=== PATIENT | female | born 1990 | race Caucasian/White ===

== ENCOUNTER 2025-04-04 09:08 | Emergency (ER) | payer OTHER, SELFPAY ==
--- NOTE | ~2025-04-04 | CT_ITS ---
CLINICAL HISTORY: dizziness, right sided headed, sudden onset CT head without contrast Comparison: None available Findings: No acute hemorrhage. No extra-axial fluid collection. No hydrocephalus, mass-effect or herniation. Lechuga-white differentiation is maintained. White matter is within normal limits for age. No acute orbital pathology. No acute soft tissue abnormality. No fracture. The visualized paranasal sinuses are predominantly clear. The mastoid air cells are clear. Impression: No acute findings. CTA of the head and neck with 3-D postprocessing Comparison: None available Findings: No significant carotid artery stenosis. Intact vertebral arteries. The vertebral basilar system is patent. The cerebellar and posterior cerebral arteries are intact. The intracranial internal carotid arteries are patent. The middle/anterior cerebral arteries are intact. No aneurysm, abrupt cutoffs or significant stenosis. No mass, midline shift, hydrocephalus, acute hemorrhage or abnormal contrast enhancement. The lung apices are clear. The soft tissues of the head and neck are unremarkable. Impression: No aneurysm, abrupt cutoffs or significant stenosis. This document has been electronically signed by: Geraldine Doherty MD on 04/04/2025 14:00:35
[2025-04-04 09:11] VITALS: BP 124/58; PULSE 73; RESP 18; TEMP 36.7; O2SAT 98; BMI 27.0
[2025-04-04 09:24] LABS: MANUAL DIFF FLAG NO
[2025-04-04 09:26] LABS: Hematocrit 40.5 % (37.0-47.0); Hemoglobin 13.9 g/dl (12.0-16.0); Imm Gran Abs Auto 0.02 X10*3/uL (0.00-0.03); Imm Gran Pct Auto 0.3 % (0.0-0.4); Lymphocytes Absolute Auto 2.3 X10*3/uL (1.2-4.9); Mean Corpuscular HGB Conc 34.3 g/dl (31.0-35.0); Mean Corpuscular Hemoglobin 30.6 pg (27.0-33.0); Mean Corpuscular Volume 89.2 fL (80.0-98.0); NRBC Abs Auto 0.000 X10*3/uL (0.0-0.012); NRBC Pct Auto 0.0 /100WBC (0.0-0.2); Platelet Count 326 X10*3/uL (160-400); Red Blood Count 4.54 X10*6/uL (4.20-5.50); White Blood Count 7.2 X10*3/uL (4.8-10.8)
--- NOTE | 2025-04-04 09:44 | PC.NURSE ---
Pt comes to ED today with c/o severe R head pain and dizziness x4 days. 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 States she feels like she is moving when sitting still. States she is breast feeding and attempting to eat and drink well. Denies known current . Denies n/v or changes to bowel/urine pattern. She reports using Tylenol and Motrin for pain management with no relief. A&Ox3 VSS No signs of congestion. Skin is warm and dry Breaths and speech are unlabored. Blood labs completed and waiting for results.
[2025-04-04 09:45] LABS: Anion Gap 13 (12-20); Blood Urea Nitrogen 15 mg/dL (9-16); Calcium 9.6 mg/dL (8.4-10.2); Carbon Dioxide 25 mmol/L (22-29); Chloride 110 mmol/L (96-108); Creatinine Clr Calc Pharmacy 108.7; Estimated Glomerular Filt Rate > 60; Potassium 4.4 mmol/L (3.3-5.1); Sodium 144 mmol/L (135-145)
--- OUTSIDE RECORDS SUMMARY | 2025-04-04 09:50 | XMS_ITS | Data Portability ---
Author Organization [facility], Main Office Address [address] [facility] [address] [place] [phone] Care Team Providers Care Security Door Installer Name Role Phone JAMAR GAN Law Office Assistant AYE COY Primary Care Provider Unavailabl e Assessment Encounter Date Assessment Date Assessment LastModified by Organization Details LastModified Time 05/23/2023 05/23/2023 This service was provided using telemedicine. Patient consented to video & audio visit Patient was located in the [facility]. Provider was located in the office. No other persons participated in the telemedicine visit except for the patient unless otherwise indicated here. Total time of visit was 15 minutes. [email or web address] Not available 05/23/2023 15:49:05 11/26/2024 11/26/2024 Discussed with patient the signs/symptoms warranted for a return to office visit and/or an ER visit. Patient understood and agreed with the plan. [email or web address] Not available 11/26/2024 11:34:59 Plan of Treatment Reminders Order Date Submit Date Provider Last Modified By Organization Details Last Modified Time Details Appointments None record ed. Lab rapid flu (A+B) 2024 025 SUKI In-Office Order, Internal Use Only DO Not Attach Compendium DO Not Attach Compendium, Do Not Delete/merge, [id number] 11:55:57 lipid panel, serum 2024 025 [email or web address] [facility], [address], [address], 08:54:13 CMP, serum or plasma 2024 025 SUKI [facility], [address], [address], [place], [address], 5 12:05:42 TSH + free T4, serum 2024 025 SUKI [facility], [address], [address], [place], [address], 5 12:05:41 CBC w/ auto diff 2024 025 SUKI [facility], [address], [address], [place], [address], 5 12:05:41 CMP, serum or plasma 2023 024 SUKI [facility], [address], [address], [place], [address], 4 15:38:18 lipid panel, serum 2023 024 [email or web address] [facility], [address], [address], [place], [address], 4 08:03:51 TSH, serum or plasma 2023 024 [email or web address] [facility], [address], [address], [place], [address], 4 09:21:32 CBC w/ auto diff 2023 024 [email or web address] [facility], [address], [address], [place], [address], 4 09:21:31 iron + total iron-b inding capaci ty (TIBC) , serum 2023 024 SUKI [facility], [address], [address], [place], [address], 4 15:38:18 ferrit in, serum or plasma 2023 024 [email or web address] [facility], [address], [address], 09:21:32 Referral None record ed. Procedures None record ed. Surgeries None record ed. Imaging None record ed. Medication Orders amoxic illin 875 mg-pot assium clavul anate 125 mg tablet 2024 025 SUKI Not available 05:01:35 valacy clovir 1 gram tablet 2023 024 SUKI [id number], [phone] [place], [address], 15:37:06 dextro amphet amine- amphet amine 5 mg tablet 2023 024 [email or web address] [id number], [phone] [place], [address], 5 15:47:25 Patient TargetsNo targets recorded. Patient Instructions Encounter Date Encounter Id Patient Instructions Last Modified By Organization Details Last Modified Time 04/20/2023 [id number] To call or return for worsening or concerns [email or web address] Not available 04/20/2023 15:24:40 05/23/2023 [id number] To call or return for worsening or concerns [email or web address] Not available 05/23/2023 15:48:43 05/08/2024 [id number] To call or return for worsening or concerns [email or web address] Not available 05/08/2024 16:09:59 10/04/2024 [id number] upper respiratory infection (cold): care instructions [email or web address] Not available 10/04/2024 10:02:46 Reason for Referral None Reported. Results Created Date Observation Date Name Description Value Unit Range Abnormal Flag Note LastModifiedBy Organization Detail LastModifiedTime 06/22/19 25 06/22/2024 TSH+F REE T4 TSH 2.320 uIU/m L 0.450- 4.500 normal Not Available [facility] ([facility]) [address] [place], [address], 06/22/2024 12:05:41 06/22/1906/22/2024 TSH+F REE T4 T4,free(dire ct) 0.71 NG/dL 0.82-1 .77 below low normal Not Available [facility] ([facility]) [address] [place], [address], 06/22/2024 12:05:41 06/22/19 25 06/22/2024 CBC WITH DIFFE RENTI AL/PL ATELE T WBC 13.0 x10e3 /uL 3.4-10 .8 above high normal Not Available [facility] ([facility]) [address] [place], [address], 06/22/2024 12:05:41 06/22/19 25 06/22/2024 CBC WITH DIFFE RENTI AL/PL ATELE T RBC 3.31 x10e6 /uL 3.77-5 .28 below low normal Not Available [facility] ([facility]) [address] [place], [address], 06/22/2024 12:05:41 06/22/19 25 06/22/2024 CBC WITH DIFFE RENTI AL/PL ATELE T hemoglobin 9.4 g/dL 11.1-1 5.9 below low normal Not Available [facility] ([facility]) [address] [place], [address], 06/22/2024 12:05:41 06/22/19 25 06/22/2024 CBC WITH DIFFE RENTI AL/PL ATELE T hematocrit 30.0 % 34.0-4 6.6 below low normal Not Available [facility] ([facility]) [address] [place], [address], 06/22/2024 12:05:41 06/22/19 25 06/22/2024 CBC WITH DIFFE RENTI AL/PL ATELE T MCV 91 fL 79-97 normal Not Available [facility] ([facility]) [address] [place], [address], 06/22/2024 12:05:41 06/22/19 25 06/22/2024 CBC WITH DIFFE RENTI AL/PL ATELE T MCH 28.4 pg 26.6-3 3.0 normal Not Available [facility] ([facility]) [address] [place], [address], 06/22/2024 12:05:41 06/22/19 25 06/22/2024 CBC WITH DIFFE RENTI AL/PL ATELE T MCHC 31.3 g/dL 31.5-3 5.7 below low normal Not Available [facility] ([facility]) [address] [place], [address], 06/22/2024 12:05:41 06/22/19 25 06/22/2024 CBC WITH DIFFE RENTI AL/PL ATELE T RDW 13.3 % 11.7-1 5.4 Not Available [facility] ([facility]) [address] [place], [address], 06/22/2024 12:05:41 06/22/19 25 06/22/2024 CBC WITH DIFFE RENTI AL/PL ATELE T platelets 326 x10e3 /uL 150-45 0 normal Not Available [facility] ([facility]) [address] [place], [address], 06/22/2024 12:05:41 06/22/19 25 06/22/2024 CBC WITH DIFFE RENTI AL/PL ATELE T neutrophils 79 % not estab. normal Not Available [facility] ([facility]) [address] [place], [address], 06/22/2024 12:05:41 06/22/19 25 06/22/2024 CBC WITH DIFFE RENTI AL/PL ATELE T lymphs 13 % not estab. normal Not Available [facility] ([facility]) [address] [place], [address], 06/22/2024 12:05:41 06/22/19 25 06/22/2024 CBC WITH DIFFE RENTI AL/PL ATELE T monocytes 6 % not estab. normal Not Available [facility] ([facility]) [address] [facility], [place], [address], 06/22/2024 12:05:41 06/22/19 25 06/22/2024 CBC WITH DIFFE RENTI AL/PL ATELE T eos 1 % not estab. normal Not Available [facility] ([facility]) [address] [facility], [place], [address], 06/22/2024 12:05:41 06/22/19 25 06/22/2024 CBC WITH DIFFE RENTI AL/PL ATELE T basos 0 % not estab. normal Not Available [facility] ([facility]) [address] [facility], [place], [address], 06/22/2024 12:05:41 06/22/19 25 06/22/2024 CBC WITH DIFFE RENTI AL/PL ATELE T immature cells SOCIAL SERVICE AGENCY DIRECTOR Not Available [facility] ([facility]) [address] [place], [address], 06/22/2024 12:05:41 06/22/19 25 06/22/2024 CBC WITH DIFFE RENTI AL/PL ATELE T neutrophils (absolute) 10.3 x10e3 /uL 1.4-7. 0 above high normal Not Available [facility] ([facility]) [address] [place], [address], 06/22/2024 12:05:41 06/22/19 25 06/22/2024 CBC WITH DIFFE RENTI AL/PL ATELE T lymphs (absolute) 1.7 x10e3 /uL 0.7-3. 1 normal Not Available [facility] ([facility]) [address] [facility], [place], [address], 06/22/2024 12:05:41 06/22/19 25 06/22/2024 CBC WITH DIFFE RENTI AL/PL ATELE T monocytes(ab solute) 0.8 x10e3 /uL 0.1-0. 9 normal Not Available [facility] ([facility]) [address] [facility], [place], [address], 06/22/2024 12:05:41 06/22/19 25 06/22/2024 CBC WITH DIFFE RENTI AL/PL ATELE T eos (absolute) 0.1 x10e3 /uL 0.0-0. 4 normal Not Available [facility] ([facility]) [address] [facility], [place], [address], 06/22/2024 12:05:41 06/22/19 25 06/22/2024 CBC WITH DIFFE RENTI AL/PL ATELE T baso (absolute) 0.1 x10e3 /uL 0.0-0. 2 normal Not Available [facility] ([facility]) [address] [facility], [place], [address], 06/22/2024 12:05:41 06/22/19 25 06/22/2024 CBC WITH DIFFE RENTI AL/PL ATELE T immature granulocytes 1 % not estab. Not Available [facility] ([facility]) [address] [place], [address], 06/22/2024 12:05:41 06/22/19 25 06/22/2024 CBC WITH DIFFE RENTI AL/PL ATELE T immature grans (abs) 0.1 x10e3 /uL 0.0-0. 1 Not Available [facility] ([facility]) [address] [facility], [place], [address], 06/22/2024 12:05:41 06/22/19 25 06/22/2024 CBC WITH DIFFE RENTI AL/PL ATELE T NRBC SOCIAL SERVICE AGENCY DIRECTOR Not Available [facility] ([facility]) [address] [facility] [place], [address], 06/22/2024 12:05:41 06/22/19 25 06/22/2024 CBC WITH DIFFE RENTI AL/PL ATELE T hematology comments: SOCIAL SERVICE AGENCY DIRECTOR Not Available [facility] ([facility]) [address] [facility] [place], [address], 06/22/2024 12:05:41 06/22/19 25 06/22/2024 COMP. METAB OLIC PANEL (14) glucose 77 mg/dL 70-99 normal Not Available [facility] ([facility]) [address] [facility] [place], [address], 06/22/2024 12:05:42 06/22/19 25 06/22/2024 COMP. METAB OLIC PANEL (14) BUN 6 mg/dL 6-20 normal Not Available [facility] ([facility]) [address] [facility] [place], [address], 06/22/2024 12:05:42 06/22/19 25 06/22/2024 COMP. METAB OLIC PANEL (14) creatinine 0.51 mg/dL 0.57-1 .00 below low normal Not Available [facility] ([facility]) [address] [facility] [place], [address], 06/22/2024 12:05:42 06/22/19 25 06/22/2024 COMP. METAB OLIC PANEL (14) eGFR 126 mL/mi n/1.7 3 >59 normal Not Available [facility] ([facility]) [address] [facility] [place], [address], 06/22/2024 12:05:42 06/22/19 25 06/22/2024 COMP. METAB OLIC PANEL (14) BUN/creatini ne ratio 12 9-23 normal Not Available [facility] ([facility]) [address] [place], [address], 06/22/2024 12:05:42 06/22/19 25 06/22/2024 COMP. METAB OLIC PANEL (14) sodium 136 mmol/ L 134-14 4 normal Not Available [facility] ([facility]) [address] [place], [address], 06/22/2024 12:05:42 06/22/19 25 06/22/2024 COMP. METAB OLIC PANEL (14) potassium 4.4 mmol/ L 3.5-5. 2 normal Not Available [facility] ([facility]) [address] [place], [address], 06/22/2024 12:05:42 06/22/19 25 06/22/2024 COMP. METAB OLIC PANEL (14) chloride 104 mmol/ L 96-106 normal Not Available [facility] ([facility]) [address] [facility] [place], [address], 06/22/2024 12:05:42 06/22/19 25 06/22/2024 COMP. METAB OLIC PANEL (14) carbon dioxide, total 19 mmol/ L 20-29 below low normal Not Available [facility] ([facility]) [address] [facility] [place], [address], 06/22/2024 12:05:42 06/22/19 25 06/22/2024 COMP. METAB OLIC PANEL (14) calcium 8.6 mg/dL 8.7-10 .2 below low normal Not Available [facility] ([facility]) [address] [facility] [place], [address], 06/22/2024 12:05:42 06/22/19 25 06/22/2024 COMP. METAB OLIC PANEL (14) protein, total 6.4 g/dL 6.0-8. 5 normal Not Available [facility] ([facility]) [address] [facility] [place], [address], 06/22/2024 12:05:42 06/22/19 25 06/22/2024 COMP. METAB OLIC PANEL (14) albumin 3.8 g/dL 3.9-4. 9 below low normal Not Available [facility] ([facility]) [address] [facility], [place], [address], 06/22/2024 12:05:42 06/22/19 25 06/22/2024 COMP. METAB OLIC PANEL (14) globulin, total 2.6 g/dL 1.5-4. 5 Not Available [facility] ([facility]) [address] [facility] [place], [address], 06/22/2024 12:05:42 06/22/19 25 06/22/2024 COMP. METAB OLIC PANEL (14) bilirubin, total <0.2 mg/dL 0.0-1. 2 Not Available [facility] ([facility]) [address] [facility], [place], [address], 06/22/2024 12:05:42 06/22/19 25 06/22/2024 COMP. METAB OLIC PANEL (14) alkaline phosphatase 79 IU/L 44-121 normal Not Available [facility] ([facility]) [address] [facility], [place], [address], 06/22/2024 12:05:42 06/22/19 25 06/22/2024 COMP. METAB OLIC PANEL (14) AST (SGOT) 13 IU/L 0-40 normal Not Available [facility] ([facility]) [address] [facility] [place], [address], 06/22/2024 12:05:42 06/22/19 25 06/22/2024 COMP. METAB OLIC PANEL (14) ALT (SGPT) 9 IU/L 0-32 normal Not Available [facility] ([facility]) [address] [facility] [place], [address], 06/22/2024 12:05:42 03/08/20 25 06/22/2024 LIPID PROFI LE cholesterol, total 272 mg/dL 100-19 9 above high normal Not Available [facility] ([facility]) [address] [place], [address], 06/22/2024 12:05:42 06/22/19 25 06/22/2024 LIPID PROFI LE triglyceride s 174 mg/dL 0-149 above high normal Not Available [facility] ([facility]) [address] [place], [address], 06/22/2024 12:05:42 06/22/19 25 06/22/2024 LIPID PROFI LE HDL cholesterol 85 mg/dL >39 normal Not Available [facility] ([facility]) [address] [place], [address], 06/22/2024 12:05:42 06/22/19 25 06/22/2024 LIPID PROFI LE VLDL cholesterol cortez 31 mg/dL 5-40 Not Available [facility] ([facility]) [address] [place], [address], 06/22/2024 12:05:42 06/22/19 25 06/22/2024 LIPID PROFI LE LDL chol calc ([facility]) 156 mg/dL 0-99 above high normal Not Available [facility] ([facility]) [address] [place], [address], 06/22/2024 12:05:42 06/22/19 25 06/22/2024 LIPID PROFI LE LDL calc comment: SOCIAL SERVICE AGENCY DIRECTOR Not Available [facility] ([facility]) [address] [place], [address], 06/22/2024 12:05:42 06/22/19 25 06/25/2024 FE+TI BC+FE R iron bind.cap.(TI BC) 492 ug/dL 250-45 0 above high normal Not Available [facility] ([facility]) [address] [place], [address], 06/30/2024 16:06:04 06/22/19 25 06/25/2024 FE+TI BC+FE R UIBC 452 ug/dL 131-42 5 above high normal Not Available [facility] ([facility]) [address] [place], [address], 06/30/2024 16:06:04 06/22/19 25 06/25/2024 FE+TI BC+FE R iron 40 ug/dL 27-159 normal Not Available [facility] ([facility]) [address] [place], [address], 06/30/2024 16:06:04 06/22/19 25 06/25/2024 FE+TI BC+FE R iron saturation 8 % 15-55 alert low Not Available [facility] ([facility]) [address] [place], [address], 06/30/2024 16:06:04 06/22/19 25 06/26/2024 FE+TI BC+FE R ferritin 5 NG/mL 15-150 below low normal Not Available [facility] ([facility]) [address] [place], [address], 06/30/2024 16:06:04 06/22/19 25 06/26/2024 VITAM IN B12 AND FOLAT E vitamin B12 202 pg/mL 232-12 45 below low normal Not Available [facility] ([facility]) [address] [place], [address], 06/30/2024 16:06:05 06/22/19 25 06/26/2024 VITAM IN B12 AND FOLAT E folate (folic acid), serum 2.8 NG/mL >3.0 below low normal A serum folat e gavino ntrat ion of less than 3.1 ng/mL is consi dered to repre sent clini cortez defic iency . Not Available [facility] ([facility]) [address] [facility], [place], [address], 06/30/2024 16:06:05 06/22/1906/24/2024 DEVANTE EN AUTHO RIZENAIDAT ION written authorizatio n Mark t Devante en Autho rizenaidat ion Recei juan. Autho rizat ion recei juan from [employer] for Link Reque st on 06-24 Logge d by Sukh Adrian Not Available [facility] ([facility]) [address] [facility], [place], [address], 06/30/2024 16:06:05 11/27/1911/26/2024 rapid flu (A+B) Flu A negati ve Not Available In-Office Order Internal Use Only DO Not Attach Compendium DO Not Attach Compendium, Do Not Delete/merge, [id number] 11/26/2024 11:39:03 11/27/1911/26/2024 rapid flu (A+B) Flu B negati ve Not Available In-Office Order Internal Use Only DO Not Attach Compendium DO Not Attach Compendium, Do Not Delete/merge, [id number] 11/26/2024 11:39:03 Result Notes None recorded. 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 Kasey allen [facility] 5 08:11:01 Fatigue 50462953 Active Kasey allen [facility] 5 08:11:01 Acute pharyngi tis 581301168 Completed 11/23/2016 SEAN Cerda [facility] 7 11:04:32 Streptoc occal sore throat 67874783 Completed 11/23/2016 SEAN Cerda [facility] 7 11:04:35 Vaginiti s and vulvovag initis Completed 200811/20/2013 RECORDED 07/24/19 09 2:56PM BY SEAN MORALES, ANNOTATI ON/ADDEN DUM Not Available [facility] 4 12:32:22 Vaginiti s and vulvovag initis Completed 200811/21/2013 RECORDED 07/24/19 09 2:56PM BY SEAN MORALES ANNOTATI ON/ADDEN DUM Not Available [facility] 4 03:40:40 Vaginiti s and vulvovag initis Completed 200810/28/2013 RECORDED 07/24/19 09 2:56PM BY ESAN MORALES, ANNOTATI ON/ADDEN DUM Not Available [facility] 4 14:10:38 Administ ration of bacteria l and viral vaccine Completed 201011/20/2013 RECORDED 06/10/19 11 9:30AM BY EVANGELINA WOODALL PA-C, OFFICE VISIT Not Available [facility] 4 12:32:21 Administ ration of bacteria l and viral vaccine Completed 201011/21/2013 RECORDED 06/10/19 11 9:30AM BY EVANGELINA WOODALL PA-C, OFFICE VISIT Not Available [facility] 4 03:40:40 Administ ration of bacteria l and viral vaccine Completed 201010/28/2013 RECORDED 06/10/19 11 9:30AM BY EVANGELINA WOODALL PA-C, OFFICE VISIT Not Available [facility] 4 14:10:38 Tubercul osis screenin g Completed 201110/28/2013 RECORDED 03/18/20 12 3:40PM BY STEVEN PEDRAZA I, NURSE VISIT Not Available [facility] 4 14:10:38 Acute pharyngi tis [id number] Completed 201211/20/2013 IMPRESSI ON: RAPID STREP NEGATIVE , SXS APPEAR TO BE IMPROVIN G. SUSPECT VIRAL PROCESS, EXPLAINE D TO PT SXS NEED TO RUN THEIR COURSE. MAY CONTINUE WITH SX MANANGEM ENT. CONTACT OFFICE FOR WORSENIN G SXS OR IF OTHER CONCERNS ARISE.; RECORDED 12/11/19 13 10:04AM BY TOMY CARRASCO MA, ANNOTATI ON/ADDEN DUM SEAN Cerda, [facility] 7 11:04:32 Anemia [id number] Completed 201211/20/2013 RECORDED 12/11/19 13 10:05AM BY TOMY CARRASCO MA, ANNOTATI ON/ADDEN DUM Socorro Abraham, [facility] [address] [facility] [address], [facility] [place] [place], [phone] , [facility] 5 09:34:04 Screenin g for malignan t neoplasm of cervix Completed 201211/20/2013 RECORDED 12/11/19 13 10:05AM BY TOMY CARRASCO MA, ANNOTATI ON/ADDEN DUM Not Available [facility] 4 12:32:21 Well child [id number] Completed 201211/20/2013 RECORDED 12/11/19 13 10:04AM BY TOMY CARRASCO MA, ANNOTATI ON/ADDEN DUM Not Available [facility] 4 12:32:21 Human papillom a virus infectio n [id number] Completed 201211/20/2013 RECORDED 12/11/19 13 10:05AM BY TOMY CARRASCO MA, ANNOTATI ON/ADDEN DUM Not Available [facility] 4 12:32:21 Administ ration of viral vaccine Completed 201211/20/2013 RECORDED 12/11/19 13 10:04AM BY TOMY CARRASCO MA, ANNOTATI ON/ADDEN DUM Not Available [facility] 4 12:32:21 Verruca vulgaris [id number] Completed 201211/20/2013 RECORDED 12/11/19 13 10:04AM BY TOMY CARRASCO MA, ANNOTATI ON/ADDEN DUM Not Available [facility] 4 12:32:22 Acute pharyngi tis 848811161 Completed 201211/21/2013 IMPRESSI ON: RAPID STREP NEGATIVE , SXS APPEAR TO BE IMPROVIN G. SUSPECT VIRAL PROCESS, EXPLAINE D TO PT SXS NEED TO RUN THEIR COURSE. MAY CONTINUE WITH SX LOLITA ENT. CONTACT OFFICE FOR WORSENIN G SXS OR IF OTHER CONCERNS ARISE.; RECORDED 12/11/19 13 10:04AM BY TOMY CARRASCO MA, ANNOTATI ON/ADDEN DUM Carolin rader MA null, [facility] 7 11:04:32 Anemia 552159963 Completed 201211/21/2013 RECORDED 12/11/19 13 10:05AM BY TOMY CARRASCO MA, ANNOTATI ON/ADDEN DUM Socorro Abraham, [facility] [address] [address], [place], [phone] , [facility] 5 09:34:04 Screenin g for malignan t neoplasm of cervix Completed 201211/21/2013 RECORDED 12/11/19 13 10:05AM BY TOMY CARRASCO MA, ANNOTATI ON/ADDEN DUM Not Available [facility] 4 03:40:39 Well child [id number] Completed 201211/21/2013 RECORDED 12/11/19 13 10:04AM BY TOMY CARRASCO MA, ANNOTATI ON/ADDEN DUM Not Available [facility] 4 03:40:40 Human papillom a virus infectio n [id number] Completed 201211/21/2013 RECORDED 12/11/19 13 10:05AM BY TOMY CARRASCO MA, ANNOTATI ON/ADDEN DUM Not Available [facility] 4 03:40:40 Administ ration of viral vaccine Completed 201211/21/2013 RECORDED 12/11/19 13 10:04AM BY TOMY CARRASCO MA, ANNOTATI ON/ADDEN DUM Not Available [facility] 4 03:40:40 Verruca vulgaris [id number] Completed 201211/21/2013 RECORDED 12/11/19 13 10:04AM BY TOMY CARRASCO MA, ANNOTATI ON/ADDEN DUM Not Available [facility] 4 03:40:40 Acute pharyngi tis [id number] Completed 201210/28/2013 IMPRESSI ON: RAPID STREP NEGATIVE , SXS APPEAR TO BE IMPROVIN G. SUSPECT VIRAL PROCESS, EXPLAINE D TO PT SXS NEED TO RUN THEIR COURSE. MAY CONTINUE WITH SX MANANGEM ENT. CONTACT OFFICE FOR WORSENIN G SXS OR IF OTHER CONCERNS ARISE.; RECORDED 12/11/19 13 10:04AM BY TOMY CARRASCO MA, LOGAN ON/ADDEN DUM SEAN Cerda, [facility] 7 11:04:32 Anemia [id number] Completed 201210/28/2013 RECORDED 12/11/19 13 10:05AM BY TOMY CARRASCO MA, LOGAN ON/ADDEN DUM Socorro Abraham, [facility] [address] [address], [facility] [place], [phone] , [facility] 5 09:34:04 Asthma [id number] Active 2012 VERY MILD INTERMIT TENT, USES PROAIR PRN. SEAN Cerda, [facility] 7 11:04:25 Screenin g for malignan t neoplasm of cervix Completed 201210/28/2013 RECORDED 12/11/19 13 10:05AM BY TOMY CARRASCO MA, ANNOTATI ON/ADDEN DUM Not Available [facility] 4 14:10:37 Gastroes ophageal reflux disease [id number] Active 2012 SENA Cerda, [facility] 7 11:04:17 Well child [id number] Completed 201210/28/2013 RECORDED 12/11/19 13 10:04AM BY TOMY CARRASCO MA, ANNOTATI ON/ADDEN DUM Not Available [facility] 4 14:10:37 Human papillom a virus infectio n [id number] Completed 201210/28/2013 RECORDED 12/11/19 13 10:05AM BY TOMY CARRASCO MA, ANNOTATI ON/ADDEN DUM Not Available [facility] 4 14:10:38 Administ ration of viral vaccine Completed 201210/28/2013 RECORDED 12/11/19 13 10:04AM BY TOMY CARRASCO MA, ANNOTATI ON/ADDEN DUM Not Available [facility] 4 14:10:38 Adult health examinat ion Completed 201210/28/2013 RECORDED 12/11/19 13 10:04AM BY TOMY CARRASCO MA, ANNOTATI ON/ADDEN DUM Not Available [facility] 4 14:10:38 Verruca vulgaris [id number] Completed 201210/28/2013 RECORDED 12/11/19 13 10:04AM BY TOMY CARRASCO MA, ANNOTATI ON/ADDEN DUM Not Available [facility] 4 14:10:38 Herpes simplex 85345087 Active 2017 SEAN Cerda, [facility] 8 12:21:55 Anemia of pregnanc y 69428570 Active 2017 SEAN Cerda, [facility] 8 14:34:32 Iron deficien cy anemia 48875440 Active 2017 Anthony Mark MD [address] [facility] [address], [place], [address] , [facility] 8 09:22:43 Onychomy cosis of toenails 197207806 Active 2021 JAZ Escudero [address] [facility] [address], [place], [address] , [facility] 2 10:48:02 Hyperlip idemia 52100863 Active 2023 JAZ Escudero [address] [facility] [address], [place], [address] , [facility] 4 15:36:41 Inattent ion 02763755 Active 2023 JAZ Escudero [address] [place] [address], [place], [address] , [facility] 4 15:37:27 Attentio n deficit hyperact ivity disorder , predomin antly inattent ralph type 38269948 Active 2023 JAZ Escudero [address] [place] [address], [place], [address] , [facility] 4 15:58:10 Anemia 355133009 Active 2024 RECORDED 12/11/19 13 10:05AM BY TOMY CARRASCO MA, ANNOTATI ON/ADDEN DUM JAZ Escudero [address] [place] [address], [place], [address] , [facility] 5 09:34:04 Leukocyt osis 041928495 Active 2024 JAZ Escudero [address] [place] [address], [place], [address] , [facility] 5 13:23:08 Hypocalc emia 7910299 Active 2024 JAZ Escudero [address] [place] [address], [place], [address] , [facility] 5 13:23:35 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 Procedures Surgical History Date Name Laterality Status Provider Name and Address Organization Details Recorded Time 10/27/2022 Date of Last Pap Smear [facility] [address] [address], [place], [address], [place] [facility] 04/20/2023 15:35:09 No surg proc w/in 30 days completed [facility] 08/17/2017 14:27:40 Imaging Results None recorded. Procedure Notes None recorded. Medical Equipment None Reported. Allergies No known drug allergies Medications Name Sig Start Date Stop Date Status Note LastModified by Organization Details LastModified Time Prescript ion - Prior Authoriza tion Request 05/24 completed Not Available Not Available Not Available nuvaring 0.12-0.01 5 mg/24hr ring active Not Available Not Available Not Available amoxicill in 500 mg capsule Take 2 capsules every day by oral route for 10 days. 10/26 completed Not Available Not Available Not Available valacyclo vir 1 gram tablet TAKE 2 TABLETS BY MOUTH EVERY 12 HOURS NEEDED FOR 1 DAY active Not Available Not Available No t Available terconazo le 0.8 % vaginal cream AT BEDTIME 10/19 completed RECORDED 10/30/19 08 12:03PM BY ROSINA HUMPHREY, MEDICATI ON AUTO-ALVA CTIVATIO N; Not Available Not Available Not Available penicilli n V potassium 500 mg tablet Take 1 tablet twice a day by oral route as directed for 10 days. 11/26 completed Not Available Not Available Not Available terbinafi ne HCl 250 mg tablet TAKE 1 TABLET BY MOUTH EVERY DAY DIRECTED 04/13 completed Not Available Not Available Not Available alprazola m 0.25 mg tablet Take 1 tablet every 6 hours by oral route as needed. 05/24 completed Not Available Not Available Not Available Denavir 1 % topical cream APPLY TO THE AFFECTED AREA(S) BY TOPICAL ROUTE EVERY 2 HOURS DURING WAKING HOURS FOR 4 DAYS active Not Available Not Available No t Available acyclovir 5 % topical ointment use as needed 05/24 completed Not Available Not Available Not Available oseltamiv ir 75 mg capsule Take 1 capsule twice a day by oral route for 5 days. 03/16 completed Not Available Not Available Not Available ferrous sulfate 325 mg (65 mg iron) tablet Take 1 tablet every day by oral route for 30 days. 05/24 completed Not Available Not Available Not Available ibuprofen 200 mg tablet Q6 HRS 05/28 completed RECORDED 05/29/19 08 11:51AM BY MARCOS CHAMBERS MD, MEDICATI ON AUTO-ALVA CTIVATIO N; Not Available Not Available Not Available Plan B 0.75 mg tablet TWO TIMES DAILY 08/07 completed RECORDED 08/08/19 12 9:07AM BY TOMY CARRASCO MA, OFFICE VISIT; DIRECTED PER PACKAGE Not Available Not Available Not Available cyanocoba beba (vit B-12) 1,000 mcg sublingua l tablet Place 1 tablet every day by sublingu al route as directed for 30 days. 2024 active Not Available Not Available Not Avai lable ibuprofen 600 mg tablet Take 1 tablet 3 times a day by oral route as needed for 10 days. 10/26 completed Not Available Not Available Not Available clotrimaz ole 1 % topical cream APPLY TO THE AFFECTED AND SURROUND ING AREAS OF SKIN BY TOPICAL ROUTE 2 TIMES PER DAY IN THE MORNING AND EVENING 05/24 completed Not Available Not Available Not Available dextroamp hetamine- amphetami ne 5 mg tablet TAKE 1 TABLET BY MOUTH EVERY DAY DIRECTED 05/08 completed Not Available Not Available Not Available amoxicill in 875 mg-potass ium clavulana te 125 mg tablet Take 1 tablet every 12 hours by oral route for 7 days. 10/18 completed Not Available Not Available Not Available albuterol (refill) 90 mcg/actua tion aerosol inhaler Q 4-6 HRS PRN COUGH/WH EEZE 08/07 completed RECORDED 08/08/19 12 9:08AM BY TOMY CARRASCO MA, OFFICE VISIT; Not Available Not Available Not Available NuvaRing 0.12 mg-0.015 mg/24 hr vaginal EVERY [address] FOR 3 WEEKS, REMOVE, 10/26 completed Not Available Not Available Not Available Ortho Tri-Cycle n LO (28) 0.18 mg/0.215 mg/0.25 mg-25 mcg tablet DAILY 08/07 completed RECORDED 08/08/19 12 9:08AM BY TOMY CARRASCO MA, OFFICE VISIT; Not Available Not Available Not Available Pavithra 0.35 mg tablet 05/24 completed Not Available Not Available Not Available 1 tab daily orally 05/24 completed Not Available Not Available Not Available ferrous gluconate 324 mg (38 mg iron) tablet Take 1 tablet twice a day by oral route as directed for 30 days. 2024 active Not Available Not Available Not Avai lable COVID-19 At-Home Test kit TEST DIRECTED 04/20 completed Not Available Not Available Not Available Vitals Date Recorded Body weight Body mass index (BMI) Body height Heart rate Oxygen saturation Body temperature Systolic And Diastolic Provider Name and Address Organization Details Last Updated DateTime 4 68084.2 2 g 26.4 kg/m2 162.56 cm 77 /min 99 % 98.7 [degF] 101/57 mm[Hg] Carolin cadena MA [facility] 4 15:20:19 Date Recorded Body weight Body mass index (BMI) Body height Heart rate Oxygen saturation Body temperature Systolic And Diastolic Provider Name and Address Organization Details Last Updated DateTime 5 21379.2 2 g 26.4 kg/m2 162.56 cm 80 /min 97 % 98.2 [degF] 97/60 mm[Hg] Carolin cadena [facility] 5 15:46:49 Date Recorded Body height Body mass index (BMI) Body weight Heart rate Oxygen saturation Body temperature Systolic And Diastolic Provider Name and Address Organization Details Last Updated DateTime 5 162.56 cm 29.5 kg/m2 96971.8 9 g 91 /min 98 % 98 [degF] 105/67 mm[Hg] Juarez wells [facility] 5 09:48:18 Date Recorded Body height Body mass index (BMI) Body weight Heart rate Oxygen saturation Body temperature Systolic And Diastolic Provider Name and Address Organization Details Last Updated DateTime 5 162.56 cm 25.2 kg/m2 78623.0 8 g 73 /min 98 % 97.9 [degF] 92/57 mm[Hg] Juarez wells MA [facility] 11:33:06 Social History Question Answer Notes LastModified by Organizat ion Details LastModified Time Tobacco Smoking Status Never Smoker SEAN Campbell, [facility] 12/11/2013 09:42:52 Do You Have An Advance Directive? Yes HCP Signed On 11/23/2016 Information not available 03/18/2021 Is Blood Transfusion Acceptable In An Emergency? Yes Information not available 01/13/2015 What Is Your Level Of Caffeine Consumption? Moderate 1 Cup Of Coffee Daily Information not available 05/08/2024 How Much Tobacco Do You Chew? None Information not available 11/23/2016 What Type Of Diet Are You Following? REGULAR Information not available 12/11/2013 Which Illicit Or Recreational Drugs Have You Used? None Information not available 12/11/2013 Live Alone Or With Others? With Others Boyfriend (Dipti) And 2 Kids Information not available 03/18/2021 Do You Take Precautions To Prevent Distracted Driving? Yes Information not available 01/13/2015 How Often Do You Need To Have Someone Help You When You Read Instructions, Pamphlets, Or Other Written Material From Your Doctor Or Pharmacy? Never Information not available 01/13/2015 Have You Served In The ? No Information not available 11/23/2016 Have You Or Anyone In Your Household Had Any Of The Following Symptoms In The Last 14 Days: Sore Throat, Cough, Chills, Body Aches For Unknown Reasons, Shortness Of Breath For Unknown Reasons, Loss Of Smell, Loss Of Taste, Fever At Or Greater Than 100 Degrees Fahrenheit? No Information not available 03/16/2020 Are You Or Anyone In Your Household A Health Care Provider Or Emergency Responder? No Information not available 03/16/2020 To The Best Of Your Knowledge Have You Been In Close Proximity To Any Individual Who Tested Positive For COVID-19? No Information not available 03/16/2020 What Was The Date Of Your Most Recent Tobacco Screening? 05/08/2024 Information not available 05/08/2024 How Many Children Do You Have? 2 Abdelrahman And Javier, And [address] (due Date 10/13/24) Information not available 05/08/2024 Do You Use Protection During Sex? No Information not available 11/23/2016 Do You Use Your Seat Belt Or Car Seat Routinely? Yes Information not available 03/18/2021 Seat Belts Used Routinely Yes Information not available 03/18/2021 Are You Sexually Active? Yes Dipti Information not available 04/20/2023 Smoke Alarm In Home Yes Information not available 03/18/2021 Do You Have Smoke And Carbon Monoxide Detectors In Your Home? Yes Information not available 03/18/2021 At What Age Did You Start Smoking Tobacco? 0 Information not available 11/23/2016 Are You Passively Exposed To Smoke? No Information not available 12/11/2013 How Much Tobacco Do You Smoke? No Information not available 12/11/2013 Do You Use Sunscreen Routinely? Yes Information not available 01/13/2015 How Many Years Have You Smoked Tobacco? 0 Information not available 11/23/2016 Sex: Unknown Functional Status Question Answer Note LastModified by Organizat ion Details LastModified Time Do you use any illicit or recreational drugs? No Information not available 03/18/2021 Do you or have you ever used any other forms of tobacco or nicotine? No Information not available 03/18/2021 What is your level of alcohol consumption? Occasional jthabet Information not available 11/26/2018 Do you or have you ever used smokeless tobacco? Never used smokeless tobacco Information not available 11/26/2018 Are you currently employed? Yes full[employer] Information not available 12/11/2013 Are you able to walk independently without assistance or assistive devices? YESWOREST Information not available 03/18/2021 Are you able to care for yourself independently? 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 Never used electronic cigarettes Information not available 03/18/2021 What is your exercise level? None Information not available 12/11/2013 Mental Status None recorded. Family History Relationship Description Onset Age of this Age Resolved Age Notes LastModified by Organization Details LastModified Time Mother Malignant neoplasm of female breast 47 54 deceas ed [email or web address] Not available 03/16/2020 13:31:18 Mother Malignant neoplasm of breast 47 54 Not available 2020 15:42:45 Mother Substance abuse kstober Not available 2019 13:08:28 Mother Harmful pattern of use of alcohol kstober Not available 2019 13:08:28 Father General health good Not available 06/2020 15:42:45 Father Substance abuse kstober Not available 2019 13:08:28 Medical History Condition Response Coronary Artery Disease N Gout N Other N Blood Diseases N Kidney Stones N Hyperthyroidism N Breast Cancer N mrsa exposure N Lung Disease N Hypothyroidism N Depression N COPD N Defects or Inherited Disease N Developmental or Behavioral Disorders N Breast Problem N Anesthesia Complications N Headaches/Migraines N Varicose Veins N Anxiety Disorder N Muscle, Joint, or Bone Problems N Obesity N Vision or Eye Problems N Arthritis N Head Injury/Concussion N Infertility N Polyps N Mental Disorder N Congenital Anomalies N Acid Reflux (GERD) Y Cancer N Stroke N ADHD N Endometriosis N High Cholesterol N Liver Disease N Headaches N Fibromyalgia N Kidney Disease N Heart Problems N Ear or Hearing Problems N Hospitalizations N Thyroid Problems N GI Problems N Developmental Delay N Acne N Eating Disorder N Skin Problems N Anemia N Constipation N Bladder Problems N Mental Illness N Diabetes N Ovarian Cancer N Bedwetting N Blood Transfusions N Heart Problems/Murmur N Seizures/Epilepsy N Tuberculosis N AIDS/HIV N Congestive Heart Failure (CHF) N Eczema N Abuse/Domestic Violence N Diverticulitis N Asthma Y Allergies N Reflux/GERD N Hepatitis N Heart Disease N Pulmonary Embolism N Hypertension N Chicken Pox N Autism Spectrum Disorder (ASD) N Osteoporosis N Gynecological History Statement/Question Response Abnormal Pap N Flow Moderate Sexually Active? Y Menses Monthly N Duration of Flow (days) 9 Date of Last Pap Smear 10/27/2022 Current Control Method None Most Recent Mammogram LMP Approximate Obstetrics History GPAL:G 3 P 1 0 1 1 Type Value Full Term 1 Induced 1 Living 1 Total 3 Immunizations Vaccine Type Date Status Note Provider Nam e and Address Organization Details Recorded Time Influenza, split virus, trivalent, preservative 4 completed SEAN Maurer, [facility] 12/16/2013 10:27:30 Influenza, split virus, quadrivalent, PF 5 completed Not Available [facility] 05/03/2019 02:22:01 Influenza, split virus, quadrivalent, PF 6 completed Socorro Abraham, [address], [address], [facility] 03/18/2021 15:58:39 COVID-19, mRNA, LNP-S, PF, 100 mcg/0.5mL dose or 50 mcg/0.25mL dose 1 completed [facility] [address] [place] [address], [address], [facility] 03/18/2021 15:58:39 COVID-19, mRNA, LNP-S, PF, 100 mcg/0.5mL dose or 50 mcg/0.25mL dose 1 completed Socorro Abraham [address], [address], [facility] 03/18/2021 15:58:39 COVID-19, mRNA, LNP-S, PF, 100 mcg/0.5mL dose or 50 mcg/0.25mL dose 2 completed Leticia Schwab MA null, [facility] 04/13/2022 11:11:34 DTaP 1 completed Not Available [facility] 10/28/2013 13:29:44 Hib (HbOC) 1 completed Not Available [facility]/28/2013 13:29:44 IPV 1 completed Not Available [facility] 13:29:44 IPV 2 completed Not Available [facility] 13:29:44 Hib (HbOC) 2 completed Not Available [facility]2013 13:29:44 DTaP 2 completed Not Available [facility]/28/2013 13:29:44 DTaP 2 completed Not Available [facility]/28[facility]2013 13:29:44 Hib (HbOC) 2 completed Not Available [facility]2013 13:29:44 Hib (HbOC) 2 completed Not Available [facility] 13:29:44 MMR 2 completed Not Available [facility] 13:29:44 IPV 3 completed Not Available [facility]/28/2013 13:29:44 DTaP 3 completed Not Available [facility]/28/2013 13:29:44 DTaP 6 completed Not Available [facility]/28/2013 13:29:44 Hep B, adolescent or pediatric 6 completed Not Available [facility]/28/2013 13:29:44 IPV 6 completed Not Available [facility]/28[facility]2013 13:29:44 MMR 6 completed Not Available [facility]/28/2013 13:29:44 Hep B, adolescent or pediatric 6 completed Not Available [facility] 13:29:45 Hep B, adolescent or pediatric 7 completed Not Available [facility]/28/2013 13:29:45 Td (adult), 2 Lf tetanus toxoid, preservative free, adsorbed 2 completed Not Available [facility]/28/2013 13:29:45 varicella 8 completed Not Available [facility] 13:29:45 HPV, quadrivalent 9 completed Not Available [facility] 13:29:45 HPV, quadrivalent 9 completed Not Available [facility] 10/28/2013 13:29:45 HPV, quadrivalent 0 completed Not Available [facility] 10/28/2013 13:29:45 Influenza, split virus, trivalent, preservative 1 completed Not Available [facility] 10/28/2013 13:29:45 Tdap 1 completed Not Available [facility] 10/28/2013 13:29:45 Influenza, split virus, trivalent, preservative 3 completed Not Available [facility] 10/28/2013 13:29:45 meningococcal MCV4P 4 completed Not Available [facility] 05/03/2019 02:21:52 Influenza, split virus, quadrivalent, PF 9 completed SEAN Campbell, [facility] 04/20/2023 15:20:33 Tdap 5 completed Not Available [facility] 11/26/2024 11:09:50 MMR 5 completed Not Available [facility] 11/26/2024 11:09:50 Influenza, split virus, quadrivalent, PF 7 completed Not Available [facility] 05/03/2019 02:22:11 Tdap 8 completed Not Available [facility] 05/03/2019 02:21:47 Influenza, split virus, quadrivalent, PF 8 completed Not Available [facility] 05/03/2019 02:22:22 Influenza, split virus, quadrivalent, PF 0 completed Caryn allen, [facility] 03/16/2020 13:27:30 Influenza, split virus, quadrivalent, PF 1 completed SEAN Maurer, [facility] 03/18/2021 16:15:52 Influenza, split virus, quadrivalent, PF 2 completed Socorro Abraham, [facility] [address] [address], [place], [address], [facility] 04/13/2022 11:30:55 Past Encounters Encounter ID Performer Location Encounter Start Date Encounter Closed Date Diagnosis/Indication Diagnosis SNOMED-CT Code Diagnosis ICD10 Code Diagnosis IMO Codes Diagnosis Note [id number] [facility] [id number] [place] [address] 05/14/2007 00:00:00 [id number] [facility] [address] [place] [address] 05/18/2007 00:00:00 [id number] [facility] [facility] [address] [place] [place] [address] 05/18/2006 00:00:00 [id number] [facility] [facility] [address] [place] [place] [address] 10/16/2007 00:00:00 [id number] [facility] [id number] [facility] [place] [address] 07/23/2008 00:00:00 [id number] [facility] [facility] [id number] [facility] [place] [address] 03/10/2009 00:00:00 [id number] [facility] [facility] [address] [facility] [place] [address] 06/10/2010 00:00:00 [id number] [facility] [facility] [id number] [facility] [place] [address] 08/04/2010 00:00:00 [id number] [facility] [facility] [address] [facility] [place] [address] 08/08/2011 00:00:00 [id number] [facility] [facility] [address] [facility] [place] [address] 12/10/2012 00:00:00 [id number] JAZ Escudero Main Office [address] [place] [address] 12/11/2013 09:33:58 12/11/2013 10:17:25 Adult health examination 359455391 Hyperlipid emia screening 204665673 [id number] Kasey gatica MD Main Office [address] [facility] [address] [place] [address] 11/04/2014 11:02:13 11/04/2014 11:17:53 Tuberculosis screening 872898081 [id number] JAZ Escudero Main Office [address] [facility] [address] [place] [address] 01/13/2015 14:50:52 01/13/2015 15:48:48 Adult health examination 135246304 UTD, flu vaccine today. Will update immunizati on status and screen based on risk factors. Regular dental care, periodic eye examinatio ns, and safety measures advised. Distracted driving discussed. Needs infl uenza immunization 638750043 Neoplasm o f uncertain behavior of skin 31143157 Fatigue 28496699 C/o feeling fatigued but is unsure if this is due to having a child, going to school and working, would like blood work done. [id number] Huy Victor MD Main Office [address] [address] [place] [address] 08/28/2015 10:23:42 08/28/2015 11:06:23 Acute pharyngitis 491381952 J02.9 Supportive /symptomat ic tx advised while waiting for abx to take effect. Streptococ cortez sore throat 81578068 J02.0 Call inb/worse. Advised that she is contagious until on abx for 24 hours. [id number] Kasey gatica MD Main Office [address] [facility] [address] [place] [address] 10/12/2015 14:34:22 10/12/2015 15:12:43 Tuberculosis screening 760743668 Z11.1 [id number] Kasey gatica MD Main Office [address] [facility] [address] [place] [address] 10/15/2015 09:12:21 10/15/2015 09:45:07 [id number] JAZ Escudero Main Office [address] [address] [place] [address] 10/26/2016 15:12:44 10/26/2016 15:41:06 Blistering eruption 131781930 R21 zovirax ointment alternate with aquaphor ointment as directed. use sunscreen and spf. [id number] JAZ Escuedro Main Office [address] [address] [place] [address] 11/23/2016 10:59:02 11/23/2016 11:48:21 Adult health examination 268208049 Z00.00 HM UTD, flu vaccine today. Will update immunizati on status and screen based on risk factors. Regular dental care, periodic eye examinatio ns, and safety measures advised. Distracted driving discussed. Had bloodwork through OB due to 42718832 Z33.1 15 weeks, followed by dr. Lantigua, dating US normal, anatomy scan in december. Neoplasm o f uncertain behavior of skin 06375108 D48.5 Flank pain 416402928 R10 .9 Tinea cruris 215301301 B 35.6 [id number] Memo medellin MD Main Office [address] [address] [place] [address] 03/06/2017 16:45:53 03/06/2017 16:49:12 Needs influenza immunization 678877578 Z23 [id number] Kasey gatica MD Main Office [address] [address] [place] [address] 05/01/2017 08:47:41 05/01/2017 10:29:56 Administration of viral vaccine 77421870 Z23 [id number] Anthony Mark MD Main Office [address] [address] [place] [address] 08/17/2017 14:23:04 08/17/2017 15:17:04 Dyspnea on exertion 47057156 R06.09 Iron defic iency anemia 87953482 D50.9 Anxiety state 054300415 F41.1 [id number] Huy Victor MD Main Office [address] [address] [place] [address] 02/07/2018 14:05:58 02/07/2018 14:23:41 Needs influenza immunization 028148001 Z23 [id number] Marcos Coe MD Main Office [address] [place] [address] 05/24/2018 14:43:23 05/24/2018 15:21:11 Acute pharyngitis 214837918 J02.9 Streptococ cortez sore throat 53151552 J02.0 hydration, rest. abx as directed x full days. warm salt water gargles as needed. [id number] Marcos Coe MD Main Office [address] [place] [address] 11/26/2018 15:03:30 11/26/2018 15:42:34 Adult health examination 666972304 Z00.00 Will update immunizati on status and screen based on risk factors. Regular dental care, periodic eye examinatio ns, and safety measures advised. Distracted driving discussed. Asthma 923739212 J45.90 9 no longer uses inhaler. stable sx [id number] Anthony Mark MD Main Office [address] [place] [address] 02/17/2019 10:55:29 02/17/2019 11:49:47 Influenza caused by Influenza A virus 493801764 J09.X2 Pt. excised from wk for 1 week. Will start antiviral meds , hydration and symptomati c relief. [id number] Huy Victor MD Main Office [address] [address] [place] [id number] 03/21/2019 15:58:29 03/21/2019 16:52:40 Needs influenza immunization [id number] Z23 [id number] Marcos Coe MD Main Office [address] [place] [address] 03/16/2020 12:57:26 03/16/2020 13:56:42 Adult health examination 595732048 Z00.00 Will update immunizati on status and screen based on risk factors. Regular dental care, periodic eye examinatio ns, and safety measures advised. Distracted driving discussed. Needs infl uenza immunization 360421325 Z23 Asthma 918448974 J45.90 9 no longer uses inhaler. stable sx Iron defic iency anemia 13576645 D50.9 Herpes simplex 31726035 B00.9 Fatigue 44085400 R53.83 C/o feeling fatigued but is unsure if this is due to having a child, going to school and working, would like blood work done. Screening for cardiovascular system disease 059658070 Z13.6 Eczema 72289809 L30.9 Onychomyco sis of toenails 985067659 B35.1 check CMP then start med. [id number] Marcos Coe MD Main Office [address] [address] 03/18/2021 15:40:20 03/18/2021 16:24:07 Adult health examination 967222871 Z00.00 Will update immunizati on status and screen based on risk factors. Regular dental care, periodic eye examinatio ns, and safety measures advised. Distracted driving discussed. Iron defic iency anemia 67471577 D50.9 Asthma 243080146 J45.90 9 no longer uses inhaler. stable sx Herpes simplex 48764351 B00.9 Onychomyco sis of toenails 562873653 B35.1 check CMP then start med. Needs infl uenza immunization 579773063 Z23 [id number] Marcos Coe MD Main Office [address] [address] 04/13/2022 10:37:07 04/13/2022 11:10:20 Adult health examination 678934882 Z00.00 Will update immunizati on status and screen based on risk factors. Regular dental care, periodic eye examinatio ns, and safety measures advised. Distracted driving discussed. Iron defic iency anemia 97107415 D50.9 not currently taking iron, will recheck labs Asthma 034259121 J45.90 9 no longer uses inhaler. stable sx Herpes simplex 31511947 B00.9 Needs infl uenza immunization 675375991 Z23 [id number] Marcos Coe MD Main Office [address] [address] 04/20/2023 14:58:46 04/20/2023 16:08:39 Adult health examination 856273529 Z00.00 Will update immunizati on status and screen based on risk factors. Regular dental care, periodic eye examinatio ns, and safety measures advised. Distracted driving discussed. Iron defic iency anemia 71638297 D50.9 not currently taking iron, will recheck labs Herpes simplex 63052429 B00.9 Asthma 990853363 J45.90 9 no longer uses inhaler. stable sx Fatigue 34569326 R53.83 C/o feeling fatigued but is unsure if this is due to having a child, going to school and working, would like blood work done. 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 Questionna ibis scanned, will tx with low dose adderall to start, f/u in 1 month for recheck of symptoms. [id number] Marcos Coe MD Telehealt h [address] [facility] [address] [place] [address] 05/23/2023 14:41:08 05/23/2023 15:54:14 Attention deficit hyperactivity disorder, predominantly inattentive type 42098947 F90.0 ADHD self report scale symptom checklist 4/6 on part A and mostly inattentiv e based on scoring, possibly disruptive .feels she needs more time to assess how it is going, she will continue 5mg for now and touch base via portal when she is due for refill.she should try to answer-- how long does the med last, any side effects when wearing off?- does she feel higher dose would help or maybe 2nd dose midday?- any decreased appetite or agitation? She will send portal message when ready. [id number] Marcos Coe MD Main Office [address] [facility] [address] [facility] [place] [address] 05/08/2024 15:31:31 05/08/2024 16:13:16 Adult health examination 228853856 Z00.00 Will update immunizati on status and screen based on risk factors. Regular dental care, periodic eye examinatio ns, and safety measures advised. Distracted driving discussed. Iron defic iency anemia 99551645 D50.9 not currently taking iron, will recheck labs Herpes simplex 34416593 B00.9 Fatigue 37309872 R53.83 C/o feeling fatigued but is unsure if this is due to having a child, going to school and working, would like blood work done. Hyperlipidemia 39095084 E78.5 Attention deficit hyperactivity disorder, predominantly inattentive type 79152331 F90.0 off meds for now, she is 17 weeks , will re-evaluat e after [id number] Marcos Coe MD Main Office [address] [facility] [address] [place] [address] 10/04/2024 09:38:24 10/04/2024 10:06:17 Acute upper respiratory infection 69904661 J06.9 2456 This is possibly a URI so she will hold off on the abx and see how she does over the next couple of days. Acute bact erial sinusitis 09216655 J01.90 B96.89 17174 Possible sinus infection. I printed a script for her and she was start this if her symptoms worsen over the next few days. Nasal congestion 5620584 0 R09.81 38399 Advised nasal saline. If not helpful she will use afrin but for no more than 3 days in order to avoid rebound. Acute cough 8075178401 06122745 R05.8 [id number] She can use OTC guafenesin if needed Third trim cheryle 70731565 Z34.93 015920 She is almost 39 weeks . [id number] Marcos Coe MD Main Office [address] [place] [address] 11/26/2024 11:08:10 11/26/2024 11:59:28 Fever with chills 973871069 R50.9 96808 in office flu is negative Viral uppe r respiratory tract infection 653229499 J06.9 966986 x1 day-measur ed fever of 102 last night-asso ciated chills and body aches-has been taking tylenol and ibuprofen with relief-den ies of any n/v/d, sob, chest pain-home covid test is negative-s uspect viral, discussed conservati ve measuremen ts Health Concerns Section Related Observation LastModified by Organization Detai ls LastModified Time None Recorded Concern Status LastModified by Organization Details LastModified Time None Recorded Advance Directives Directive Y: HCP signed on 11/23/2016 Payers Insurance Date Sequence Insurance Name Policy Number Policy Noe Covered Member ID Noe Member ID Guarantor Name 05/08/2024 1 [facility] - HEALTH NET PLAN (MEDICAID HMO) [id number] Cathy Hoffmann Hou [id number] Cathy Tahira Hou 05/08/[address] [facility] - HEALTH NET PLAN (MEDICAID HMO) [id number] Cathy Tahira Hou [id number] Cathy Tahira Hou 05/08/2024 1 [place] Cathy Tahira Hou [id number] Cathy Tahira Hou 05/08/[address] [facility] - [facility]ALTH[facility] - MEDICAID ESSENTIAL (MEDICAID HMO) [id number] Cathy Tahira Hoffmann Hou [id number] Cathy Tahira Hou 05/08/2024 1 [facility] - [facility] (MEDICAID REPLACEMENT - HMO) [id number] Cathy Tahira Hou [id number] Cathy Tahira Hou 01/15/[address] [facility] (HMO) [id number] Cathy Tahira Hou [id number] Cathy Tahira Hou Notes Date Note Type Note Provider Name and Address Organization Details Recorded Time 04/20/2023 text/html Generic HPI TemplateReported by PatientPresents for PE,concerns: fixates on things, sometimes is talking and forgets what she is saying, has felt anxiety worse this past ear due top this. starts things but unable to complete them. Sometimes affect work- has to take notes home. procrastinates and feels this happened even in school. Socorro Abraham, [facility] [address] [facility] [address], [place], [address], [facility] 04/24/2023 10:36:34 05/23/2023 text/html Generic HPI TemplateReported by PatientPresents for PE,concerns: fixates on things, sometimes is talking and forgets what she is saying, has felt anxiety worse this past ear due top this. starts things but unable to complete them. Sometimes affect work- has to take notes home. procrastinates and feels this happened even in school. Video visit:in f.u of ADHD med. at her PE visit, she verbalizes cocneremilie re: ADHD, self assessment questionnaire positive. Was started on adderall 5mg daily.Her son was sick and she has been sick. almost rescheduled as she felt she hasn't been able to assess fully yet.When she does take it she does feel a difference, is able to be more focused. JAZ Escudero [address] [facility] [address], [place], [address], [facility] [place] 05/23/2023 15:51:30 05/08/2024 text/html Generic HPI TemplateReported by PatientPresents for PE,Is 17 weeks with a girl. Unexpected so some stress but overall ok. last year she was concerned about ADHD, tried low dose adderall but felt no change so she stopped it. Work is busy.Has been having back to back cold sores, will be starting suppression at 36 weeks though [employer], Dr. Gan. has anatomy scan may 27. had bloodwork through [employer] JAZ Escudero [address] [facility] [address], [place], [address], [facility] [place] 05/08/2024 16:16:33 10/04/2024 text/html ROS as noted in the HPI Cough started 5 days ago sometimes productive. No f/c. No sore throat and swallowing okay. 39 weeks . Has not taken any meds. Also with nasal congestion and pain at the right side of her face mostly in the right maxillary area and pain on that side when chewing. Never had a sinus infection and no h/o allergies. Marcos Coe MD [address] [facility] [address], [place], [address], [facility] [place] 10/04/2024 11:03:12 11/26/2024 text/html ROS as noted in the HPI Cathy is a 33yr old F who presents for fever/chills, SMITH, and body aches x1 day. Reports of having a measured fever of 102 last night with associated SMITH, body aches, and chills. Denies of any known sick contact. Has a at home, wants to to get tested for the flu. Home covid test is negative. Denies of any cough, congestion, n/v/d, sob. Has been taking tylenol and ibuprofen which provides relief. MADINA TURNER [address] [address], [place], [address], [facility] 11/26/2024 12:40:32 OBGyn Episode No OBEpisode recorded.
[2025-04-04 10:02] LABS: Resp Syncy Virus RNA Qual PCR NEGATIVE (Negative); SARS COV2 PCR INHOUSE NEGATIVE (Negative)
--- NOTE | 2025-04-04 10:32 | ED_ITS ---
HPI - General Adult General Chief complaint: General Medical Stated complaint: right sided headache Time Seen by Provider: 04/04/25 10:32 Source: patient Mode of arrival: ambulatory Limitations: no limitations History of Present Illness ED Provider: Karely Sutherland PA-C HPI narrative: Patient is a 34 year old female with no reported medical history presenting to the emergency department today with right sided headache and dizziness. Patient states that over the last few days she has felt generally unwell with a right sided headache and dizziness. 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 Patient denies any other complaints at this time. Related Data Allergies Allergy/AdvReac Type Severity Reaction Status Date / Time No Known Allergies Allergy Verified 04/04/25 09:13 Review of Systems 2 Constitutional: Constitutional: Reports as per HPI Eyes: Eyes: Reports as per HPI ENT: Reports as per HPI Cardiovascular: Cardiovascular: Reports as per HPI Respiratory: Respiratory: Reports as per HPI Gastrointestinal: Gastrointestinal: Reports as per HPI Genitourinary: Genitourinary: Reports as per HPI Musculoskeletal: Musculoskeletal: Reports as per HPI Integumentary/Breasts: Skin/Breast: Reports as per HPI Neurologic: Reports as per HPI Psychiatric: Psychiatric: Reports as per HPI Endocrine: Endocrine: Reports as per HPI Hematologic/Lymphatic: Hematologic/Lymphatic: Reports as per HPI Allergic/Immunologic: Allergic/Immunologic: Reports as per HPI [facility] Past Medical History Attestation statement: The following information was validated with the patient. Source: old records reviewed and nursing notes reviewed Social History Social History Smoked in Last 30 Days: No Use of substances other than those prescribed or required for medical reasons: No Advance Directives: No Advance Directives Information Provided: Yes Do you have a plan to hurt others: No Plan Patient : No Physical Exam ED Vital Signs: Vital Signs - 24 hr 04/04/25 09:11 04/04/25 12:49 04/04/25 14:15 Temperature 98.0 F 97.8 F 97.8 F Pulse Rate 73 82 82 Respiratory Rate 18 12 12 Blood Pressure 124/58 L 113/68 113/68 Pulse Oximetry 98 98 98 Oxygen Delivery Method Room Air Room Air Room Air BMI result Body Mass Index 27.0 Const General: cooperative, no acute distress, alert and awake Nutritional Appearance: well nourished Orientation/consciousness: patient oriented x3 HENMT Head: Yes normal to inspection and Yes atraumatic Ears: hearing grossly normal bilaterally and external ears normal General nose exam: Normal external nose present, no nasal discharge noted and no epistaxis Face and sinus: Yes normal facial exam, No abrasion and No laceration Mouth: Normal oral and palatal mucosa present, no drooling and no muffled voice Eyes General: appearance normal, both eyes and all related structures Periorbital: periorbital findings normal Eyelids: Yes eyelids normal Conjunctivae: conjunctivae normal Pupils: Equal, round and reactive pupils present EOM: EOMs intact bilaterally Neck Neck: Yes normal visual inspection and Yes full ROM Resp Effort & Inspection: normal respiratory effort and able to speak in complete sentences Neuro General: patient oriented x3, moves all extremities and CN's II-XI intact bilaterally Cranial nerves: Yes Equal, round and reactive pupils present Cognition (Neuro): normal cognition Extrem General: Yes normal to inspection, Yes full ROM and Yes capillary refill normal Psych Appearance: grossly normal Mental Status: mental status grossly normal Affect: normal affect Attitude: cooperative Thought process: Normal thought process present Thought content: Normal thought content present Insight: Good insight present (Psych) Medications Administered Discontinued Medications Generic Name Dose Route Start Last Admin Trade Name Freq PRN Reason Stop Dose Admin Dexamethasone Sodium Phosphate 10 mg 04/04/25 13:46 04/04/25 14:04 Dexamethasone Sod Phosphate 10 Mg/Ml Vial IVPUSH 04/04/25 13:47 10 mg ONCE ONE Administration Iohexol 100 ml 04/04/25 11:48 04/04/25 11:50 Iohexol 350 Mg/Ml 100 Ml Infus..Btl IV 04/04/25 11:49 70 ml ONCE ONE Administration Medical Decision Making Medical Decision Making [facility] Narrative: Patient is a 34 year old female with no reported medical history presenting to the emergency department today with right sided headache and dizziness. Patient's physical exam was as noted in the physical exam portion of this note. Patient's blood work was unremarkable. Patient's CTA of the head and neck showed no acute process. Patient's clinical presentation is most consistent with a migraine headache +/- a viral illness. I explained my physical exam findings as well as all test results to the patient. I answered all questions asked by the patient. I discussed a migraine cocktail with the patient and she expressed concerns over medications contaminating her breast milk since she is still breast feeding. We decided, through shared decision making, to move forward with decadron as this would be safe in children and hold the other medications. I stressed the importance of the patient taking her medication as directed (either prescribed or as the over the counter packaging recommends). I stressed the importance of the patient following up with her primary care provider. I stressed the importance of the patient returning to the emergency department immediately if her symptoms were to worsen or if she were to develop any dizziness, shortness of breath, difficulty breathing, chest pain, blurry vision, loss of vision, nausea, vomiting, abdominal pain, fever, chills, back pain, or any other complaints. Patient verbalized agreement and understanding with this treatment plan and discharge. Differential Diagnosis Differential Diagnoses: The differential diagnosis associated with the presentation includes Headache Migraine headache Viral illness COVID-19 Influenza RSV Aneurysm Mass Admission/Observation Consideration of admission/observation: Escalation of care including admission/observation considered Patient would have been admitted to the hospital had her work up had any findings where hospital admission was appropriate and her clinical presentation warranted hospital admission. Lab Data [facility] Lab Attestation statement: I reviewed the patient's lab results. My interpretation of these results are in the [facility] Rationale portion of this note. 04/04/25 09:20 04/04/25 09:20 Labs: Lab Results 04/04/25 Range/Units 09:20 WBC 7.2 (4.8-10.8) X10*3/uL RBC 4.54 (4.20-5.50) X10*6/uL Hgb 13.9 (12.0-16.0) g/dl Hct 40.5 (37.0-47.0) % MCV 89.2 (80.0-98.0) fL MCH 30.6 (27.0-33.0) pg MCHC 34.3 (31.0-35.0) g/dl RDW 12.6 (11.0-16.0) % Plt Count 326 (160-400) X10*3/uL MPV 9.2 L (9.4-12.3) fL Immature Gran % (Auto) 0.3 (0.0-0.4) % Neut % (Auto) 57.6 (45-73) % Lymph % (Auto) 31.4 (20-40) % Shoshone % (Auto) 7.7 (2-11) % Eos % (Auto) 2.4 (0-4) % Baso % (Auto) 0.6 (0-2) % Lymph # (Auto) 2.3 (1.2-4.9) X10*3/uL Shoshone # (Auto) 0.6 (0.1-1.2) X10*3/uL Eos # (Auto) 0.2 (0.0-0.4) X10*3/uL Baso # (Auto) 0.0 (0.0-0.2) X10*3/uL Abs Immat Gran (auto) 0.02 (0.00-0.03) X10*3/uL Absolute Neuts (auto) 4.2 (2.0-8.3) x10*3/uL Absolute Nucleated RBC 0.000 (0.0-0.012) X10*3/uL Nucleated RBC % (auto) 0.0 (0.0-0.2) /100WBC Sodium 144 (135-145) mmol/L Potassium 4.4 (3.3-5.1) mmol/L Chloride 110 H (96-108) mmol/L Carbon Dioxide 25 (22-29) mmol/L Anion Gap 13 (12-20) BUN 15 (9-16) mg/dL Creatinine 0.68 (0.5-1.4) mg/dL Estim Creat Clear Calc 108.7 Estimated GFR > 60 Random Glucose 92 (60-115) mg/dL Calcium 9.6 (8.4-10.2) mg/dL TSH 2.41 (0.32-4.0) uIU/mL Beta HCG, Quant < 2 mIU/mL Influenza Type A (PCR) NEGATIVE (Negative) Influenza Type B (PCR) NEGATIVE (Negative) RSV RNA Qual (PCR) NEGATIVE (Negative) SARS-CoV-2 RNA (RT-PCR) NEGATIVE (Negative) Independent Interpretation I performed an independent interpretation of an: CT Scan Interpretation: My interpretation is in agreement with the radiologist's impression of this imaging study as written below. Reason for Exam: dizziness, right sided headed, sudden onset CLINICAL HISTORY: dizziness, right sided headed, sudden onset CT head without contrast Comparison: None available Findings: No acute hemorrhage. No extra-axial fluid collection. No hydrocephalus, mass- effect or herniation. Lechuga-white differentiation is maintained. White matter is within normal limits for age. No acute orbital pathology. No acute soft tissue abnormality. No fracture. The visualized paranasal sinuses are predominantly clear. The mastoid air cells are clear. Impression: No acute findings. CTA of the head and neck with 3-D postprocessing Comparison: None available Findings: No significant carotid artery stenosis. Intact vertebral arteries. The vertebral basilar system is patent. The cerebellar and posterior cerebral arteries are intact. The intracranial internal carotid arteries are patent. The middle/anterior cerebral arteries are intact. No aneurysm, abrupt cutoffs or significant stenosis. No mass, midline shift, hydrocephalus, acute hemorrhage or abnormal contrast enhancement. The lung apices are clear. The soft tissues of the head and neck are unremarkable. Impression: No aneurysm, abrupt cutoffs or significant stenosis. This document has been electronically signed by: Geraldine Doherty MD on 04/04/2025 14:00:35 Dictated By: Geraldine Bedolla MD Signed By: Electronically signed by Geraldine Bedolla MD 04/04/25 3744 Radiology Impression Discussion of test interpretation with radiology: I have reviewed the radiologist's reading. Discharge Plan Discharge Clinical Impression: Headache Patient Disposition: Home, Self-Care Instructions: Acute Headache (DC) Additional Instructions: Your CTA of the head / neck shwoed no acute process. The rest of your work up was unremarkable. IF you are prescribed home medications and/or you are taking over the counter medications at home - it is very important you continue to do so as prescribed / directed unless told otherwise by a healthcare provider. Follow up with your primary care provider. Do your best to stay well hydrated and rest. Return to the emergency department immediately if your symptoms worsen or if you develop any numbness, tingling, dizziness, shortness of breath, difficulty breathing, chest pain, blurry vision, loss of vision, nausea, vomiting, abdominal pain, fever, chills, back pain, or any other complaints. Please see the information below about our Patient Portal. If you are not yet enrolled in the [facility] Patient Portal, you will receive an enrollment email invitation following your visit to any [facility] setting. You may also self-enroll in the Patient Portal by visiting our website: [email or web address] The following information is required to access the Patient Portal: - Your [facility] Medical Record Number - Your personal home email address (must match what is in your electronic medical record, Registration staff can assist with this) - Name - Date of Capabilities of the Patient Portal: - Message some providers - View upcoming appointments - Access your health summary, medical history, and visit history - View current conditions and allergies - View procedure and lab results - View your medications, including guidelines, side effects, and precautions - Complete pre-appointment questionnaires requested by your provider - Ready summary reports of your office visits and procedures To access the Patient Portal Mobile Sonya, follow these directions: - Search [facility] in the Sonya Store or Zeppelin Store - Download the Sonya - Search for [facility] - Enter your login/password Referrals: Yuni Mei PA [Primary Care Provider, Internal Medicine] Stand Alone Forms: Work/School Release Interventions: ED Discharge Assessment Last Done: 04/04/25 14:15 Discharge Date/Time: 04/04/25 14:10 Print Language: Sinhala
[2025-04-04] MEDS: iohexoL 350 MG/ML 100 ML INFUS..BTL IV (11:50)
[2025-04-04 12:49] VITALS: BP 113/68; PULSE 82; RESP 12; TEMP 36.6; O2SAT 98
[2025-04-04 14:15] VITALS: BP 113/68; PULSE 82; RESP 12; TEMP 36.6; O2SAT 98
== END 2025-04-04 14:10 | disposition home or self-care (01) ==
PROVIDERS: Physician Assistant Medical; Emergency Provider Emergency Medicine; PCP Student in an Organized Health Care Education/Training Program
DX: R51.9 Headache, unspecified (principal); R42 Dizziness and giddiness; Z03.818 Encounter for observation for suspected exposure to other biological agents ruled out
CPT/HCPCS: 70496; 70498; 80048; 84443; 84702; 85025; 87637; 96374; 99284; 99285; J1100; Q9967

== ENCOUNTER → 2025-04-04 10:41 | Outpatient (BNV) | payer OTHER, SELFPAY | PROVIDERS: Emergency Provider Emergency Medicine; PCP Student in an Organized Health Care Education/Training Program; Visit Provider Radiology Diagnostic Radiology | DX: R42 Dizziness and giddiness (principal); R51.9 Headache, unspecified | CPT/HCPCS: 70496; 70498 ==